=== PATIENT | female | born 1995 | race American Indian/Alaskan Native ===

== ENCOUNTER 2017-01-22 23:13 | Emergency (ER) | payer OTHER ==
[2017-01-23] MEDS ORDERED: VALIUM IV ONE (04:04)
[2017-01-23] MEDS ORDERED: TORADOL IV ONE (04:04)
[2017-01-23] MEDS ORDERED: BENADRYL IV ONE (04:04)
[2017-01-23] MEDS ORDERED: ZOFRAN IV ONE (04:07)
[2017-01-23] MEDS ORDERED: NACL 0.9% 500 ML 500 ML IV ONE (04:07)
--- NOTE | 2017-01-23 04:08 | Emergency Department Report ---
<MARCIN LEIVA - Last Filed: 01/23/17 07:35> ED Headache HPI - General Chief Complaint: Headache Stated Complaint: HEADACHE Time Seen by Provider: 01/23/17 03:56 Source: patient Exam Limitations: no limitations - History of Present Illness Initial Comments: 21-year-old -[place] female comes in for complaint of headache since Thursday. Patient was seen at [facility] then diagnosed with a migraine. She reports that she took the Medrol Dosepak and pain pills as they prescribed an headache got better as of yesterday which was patient reports that the headache returned and the medication that she was prescribed was no longer helping. Patient does admit to some nausea no vomiting she rates her pain 8 out of 9. She reports it is constant it feels like a band around her head. She complains of some dizziness. She denies any trauma and no recent accidents no recent head injuries. Quality: moderate Allergies/Adverse Reactions: Allergies azithromycin [From Zithromax] Allergy (Verified 07/18/16 16:57) Swelling cephalexin monohydrate [From Keflex] Allergy (Verified 05/20/15 01:28) Anaphylaxis ED Review of Systems ROS: Stated complaint: HEADACHE Other details as noted in HPI ED Past Medical Hx - Past Medical History Previous Medical History?: Yes Hx Asthma: Yes Additional medical history: Polycystic ovarian syndrome. obesity - Surgical History Past Surgical History?: Yes Additional Surgical History: foot surgery - Social History Smoking Status: Never Smoker Substance Use Type: Alcohol ED Physical Exam - General Limitations: No Limitations - Eye Eye exam: Present: normal appearance, PERRL, EOMI - ENT ENT exam: Present: normal exam, mucous membranes moist - Neck Neck exam: Present: normal inspection, full ROM - Respiratory Respiratory exam: Present: normal lung sounds bilaterally - Cardiovascular Cardiovascular Exam: Present: regular rate, normal rhythm - Expanded Neurological Exam Expanded Patient oriented to: Present: person, place, time Speech: Present: fluid speech Cranial nerves: EOM's Intact: Normal, Gag Reflex: Normal, Tongue Deviation: Normal, Nystagmus: Normal Cerebellar function: Finger to Nose: Normal, Heel to Zhao: Normal, Romberg: Normal Sensory exam: Upper Extremity Light Touch: Normal, Upper Extremity Temperature: Normal, Lower Extremity Light Touch: Normal, Lower Extremity Temperature: Normal - Psychiatric Psychiatric exam: Present: normal affect, normal mood - Skin Skin exam: Present: warm, dry, intact ED Course Vital Signs 01/22/17 01/23/17 01/23/17 23:14 07:28 12:09 Temperature 98.8 F 98 F 98.6 F Pulse Rate 59 L 54 L 57 L Respiratory 16 18 18 Rate Blood Pressure 124/79 121/80 90/54 [Right] O2 Sat by Pulse 100 100 97 Oximetry ED Medical Decision Making - Medical Decision Making Patient's been evaluated by this provider fast track. Since patient's been evaluated about another facility within the week we will go ahead and do a CAT scan to rule out any abnormalities. We will do an IV insertion with the 500 mg normal saline bolus IV Zofran 4 mg Toradol 30 mg IV as well as Benadryl 25 mg IV and Valium 5 mg IV. Critical care attestation.: If time is entered above; I have spent that time in minutes in the direct care of this critically ill patient, excluding procedure time. ED Disposition Clinical Impression: Subdural hemorrhage, Mastoiditis of right side, Transverse sinus thrombosis Headache Qualifiers: Headache type: unspecified Headache chronicity pattern: acute headache Intractability: not intractable Qualified Code(s): R51 - Headache Clinical Impression: (Ruled Out): Migraine Disposition: DC/TX ANOTHER TYPE HEALTHCARE Is pt being admited?: No Does the pt Need Aspirin: No Condition: Stable Referrals: PRIMARY CARE, [Primary Care Provider] - 3-5 Days <AUSTIN STONE - Last Filed: 01/27/17 09:55> ED Headache HPI - General Source: patient ED Course - Reevaluation(s) Reevaluation #1: 01/23/17 11:15 Patient given [place] one tablet for headache with Dr. Maya the patient My showed the patient has a right mastoiditis and Sinus thrombus. Dr. Maya will be talking to [facility] regarding MRV and an MRI of the brain with and without contrast. Reevaluation #2: 01/23/17 11:28 Patient to start on low-dose heparin drip per Dr. Maya without bolus and will be transferred to [facility] when there is a bed available. Reevaluation #3: 01/23/17 13:10 Patient Tylenol to [facility] via EMS and tolerating heparin drip at a low dose. ED Medical Decision Making - Lab Data Result diagrams: 01/23/17 11:37 01/23/17 07:57 Lab Results 01/23/17 01/23/17 01/23/17 Range/Units 07:57 11:37 11:37 WBC 11.5 H (4.5-11.0) K/mm3 RBC 4.77 (3.65-5.03) M/mm3 Hgb 13.4 (10.1-14.3) gm/dl Hct 40.6 (30.3-42.9) % MCV 85 (79-97) fl MCH 28 (28-32) pg MCHC 33 (30-34) % RDW 13.6 (13.2-15.2) % Plt Count 321 (140-440) K/mm3 Lymph % (Auto) 37.3 H (13.4-35.0) % [place] % (Auto) 6.4 (0.0-7.3) % Eos % (Auto) 0.1 (0.0-4.3) % Baso % (Auto) 0.5 (0.0-1.8) % Lymph # 4.3 (1.2-5.4) K/mm3 [place] # 0.7 (0.0-0.8) K/mm3 Eos # 0.0 (0.0-0.4) K/mm3 Baso # 0.1 (0.0-0.1) K/mm3 Seg Neutrophils % 55.7 (40.0-70.0) % Seg Neutrophils # 6.4 (1.8-7.7) K/mm3 PT 13.3 (12.2-14.9) Sec. INR 1.02 (0.87-1.13) APTT 23.0 L (24.2-36.6) Sec. Sodium 140 (137-145) mmol/L Potassium 4.6 (3.6-5.0) mmol/L Chloride 103.8 (98-107) mmol/L Carbon Dioxide 24 (22-30) mmol/L Anion Gap 17 mmol/L BUN 13 (7-17) mg/dL Creatinine 0.7 (0.7-1.2) mg/dL Estimated GFR > 60 ml/min BUN/Creatinine Ratio 18.57 % Glucose 108 H (65-100) mg/dL Calcium 9.1 (8.4-10.2) mg/dL Urine HCG, Qual (Negative) 01/23/17 Range/Units Unknown WBC (4.5-11.0) K/mm3 RBC (3.65-5.03) M/mm3 Hgb (10.1-14.3) gm/dl Hct (30.3-42.9) % MCV (79-97) fl MCH (28-32) pg MCHC (30-34) % RDW (13.2-15.2) % Plt Count (140-440) K/mm3 Lymph % (Auto) (13.4-35.0) % [place] % (Auto) (0.0-7.3) % Eos % (Auto) (0.0-4.3) % Baso % (Auto) (0.0-1.8) % Lymph # (1.2-5.4) K/mm3 [place] # (0.0-0.8) K/mm3 Eos # (0.0-0.4) K/mm3 Baso # (0.0-0.1) K/mm3 Seg Neutrophils % (40.0-70.0) % Seg Neutrophils # (1.8-7.7) K/mm3 PT (12.2-14.9) Sec. INR (0.87-1.13) APTT (24.2-36.6) Sec. Sodium (137-145) mmol/L Potassium (3.6-5.0) mmol/L Chloride (98-107) mmol/L Carbon Dioxide (22-30) mmol/L Anion Gap mmol/L BUN (7-17) mg/dL Creatinine (0.7-1.2) mg/dL Estimated GFR ml/min BUN/Creatinine Ratio % Glucose (65-100) mg/dL Calcium (8.4-10.2) mg/dL Urine HCG, Qual Negative (Negative) - Radiology Data Radiology results: report reviewed CT scan of the brain without contrast showed that patient had subdural hematoma. MRI/MRV of the brain with and without contrast showed right mastoiditis. Patient has no tenderness to the mastoid bone. It also showed the patient had sinus thrombosis. ED Disposition Is pt being admited?: No Does the pt Need Aspirin: No Time of Disposition: 13:11
--- NOTE | 2017-01-23 07:18 | Cat Scan Report ---
CT scan of head without contrast: History: Headache. Findings: Ventricles are normal in size and midline in location. There is crescentic area of increased attenuation noted at the right cerebellum adjacent to inner table probably suggestive of subdural hematoma or intraparenchymal hemorrhage in the region. No evidence of acute ischemia. Normal sinuses and mastoid air cells. Impression: Suspected right cerebellar subdural or intraparenchymal hemorrhage. MRI scan for further evaluation. Dr. Plummer in the ER was informed of the findings at 7:09 PM on 01/23/17. [place].
[2017-01-23 08:31] LABS: Anion Gap 17 mmol/L; BUN/Creatinine Ratio 18.57; Blood Urea Nitrogen 13 mg/dL (7-17); Calcium 9.1 mg/dL (8.4-10.2); Carbon Dioxide 24 mmol/L (22-30); Chloride 103.8 mmol/L (98-107); Glucose 108 mg/dL (65-100); Potassium 4.6 mmol/L (3.6-5.0); Sodium 140 mmol/L (137-145)
[2017-01-23] MEDS ORDERED: NORCO 5/325 PO ONE (10:11)
--- NOTE | 2017-01-23 10:32 | Magnetic Resonance Report ---
MRI scan of brain: History: Possible subdural hematoma right cerebellum. Technique: Multiplanar, multisequence images were obtained without and with contrast injection. Findings: Ventricles are normal in size and midline in location. No evidence of restricted diffusion. No evidence of acute ischemia. At the right transverse sinus there is areas of mixed signal intensity identified on gradient echo imaging with abnormal area of enhancement suggestive of sinus thrombosis. Normal sinuses. Acute right mastoiditis. Impression: Thrombosis of right transverse sinus. Acute right mastoiditis. The
--- NOTE | 2017-01-23 10:34 | Magnetic Resonance Report ---
MRA of brain: History: Rule out dural sinus thrombosis. The vessels of [place] are widely patent. No evidence of obstruction stenoses or aneurysm. No evidence of dissection. Abnormal vascularity is noted at right transverse sinus extending to the sigmoid suggestive of right transverse dural sinus thrombosis.
[2017-01-23 11:50] LABS: Basophils % (Auto) 0.5 % (0.0-1.8); Eosinophils % (Auto) 0.1 % (0.0-4.3); Hematocrit 40.6 % (30.3-42.9); Hemoglobin 13.4 gm/dl (10.1-14.3); Mean Corpuscular HGB Conc 33 % (30-34); Mean Corpuscular Hemoglobin 28 pg (28-32); Mean Corpuscular Volume 85 fl (79-97); Platelet Count 321 K/mm3 (140-440); Red Blood Count 4.77 M/mm3 (3.65-5.03); Red Cell Distribution Width 13.6 % (13.2-15.2); White Blood Count 11.5 K/mm3 (4.5-11.0)
[2017-01-23] MEDS ORDERED: HEPARIN/ 0.45% NACL-25,000 UNIT/500 ML 25,000 UNIT/500 ML BAG IV SCH (12:00)
[2017-01-23 12:04] LABS: INR 1.02 (0.87-1.13)
[2017-01-23 12:10] VITALS: BP 90/54
== END 2017-01-23 12:46 | disposition other institution (70) ==
LOC: ED 23:13
DX: I62.00 Nontraumatic subdural hemorrhage, unspecified (principal); H70.91 Unspecified mastoiditis, right ear; G08 Intracranial and intraspinal phlebitis and thrombophlebitis; R51 Headache; J45.909 Unspecified asthma, uncomplicated
CPT/HCPCS: 36415; 70450; 70544; 70553; 80048; 81025; 85025; 85610; 85730; 96365; 96375; 99285; A9577; J1200; J1644; J1885; J2405; J3360; J7040